=== PATIENT | male | born 1955 | race Hispanic/Latino ===

== ENCOUNTER 2017-10-16 00:36 | Inpatient (IN) | payer SELFPAY ==
[2017-10-16] MEDS ORDERED: Bupivacaine HCl 0.25%/Epi 0.0005/PF 10 ML VIAL FS ONE (01:09)
[2017-10-16] MEDS ORDERED: Ondansetron ODT 4 MG TAB ONE (01:09)
[2017-10-16] MEDS ORDERED: Pantoprazole 40 MG VIAL ONE (01:09)
[2017-10-16 01:30] LABS: PTT 37.3 SEC (22.9-36.1); Prothrombin Time 13.1 SEC (12.0-14.7)
[2017-10-16] MEDS ORDERED: Fentanyl 250 MCG/5 ML VIAL ONE (01:35)
[2017-10-16] MEDS ORDERED: Cefepime 2 GM in Sodium Chloride 0.9% 100 ML IVPB SCH (02:30)
--- NOTE | 2017-10-16 03:31 | HP ---
CHIEF COMPLAINT: Abdominal pain. HISTORY OF PRESENT ILLNESS: Mr. Jerry is a 61-year-old man with a 2-week history of epigastric pain. This became much worse after he had dinner and 2 beers more around 8:00 last night. He called his family at 10 and they took him to his local emergency room, where he was found to have evidence of a bowel perforation. He states that he has been taking Advil for the pain, but has not been taking it frequently or every day. He does have a past history of being told that he might have ulcers, but mccabe s not apparently had any endoscopy or been on any medication for this and he was told as many years a go, he does smoke and occasionally does cocaine, most recently last weekend, he also drinks daily, us ually 1-2 beers but up to a 20-pack on the weekend. PAST MEDICAL HISTORY: None except for possibly a distant history of suspected ulcer disease. PAST SURGICAL HISTORY: None. FAMILY HISTORY: Thyroid cancer in his mother and heart disease in his father diagnosed in his late 7 0s. ALLERGIES: No known drug allergies. OUTPATIENT MEDICATIONS: None chronic. He has been taking Pepto-Bismol and Advil [id number]. REVIEW OF SYSTEMS: Ten system review of systems is negative except per HPI. He has not had any naus ea or vomiting, fevers or chills or any changes in his bowel habits. PHYSICAL EXAMINATION: GENERAL: Patient is afebrile. HEENT: Unremarkable. NECK: Supple without lymphadenopathy or thyroid nodules. VITAL SIGNS: Regular in its rate and rhythm without murmurs, rubs, or gallops. LUNGS: Clear to auscultation bilaterally. ABDOMEN: Firm with some guarding. He does not have any palpable masses or hernias. No incisions. He is diffusely tender to palpation, but worse in the upper abdomen in the right side. EXTREMITIES: Warm and well perfused without edema. NEUROLOGIC: No focal deficits. PSYCHIATRIC: Alert, oriented, and appropriate. LABORATORY DATA AND X-RAY FINDINGS: Labs are unremarkable. CT images from transferring facility are reviewed and I agree with written report. He has free air and free fluid in the upper abdomen and t he right colic gutter as well as some extravasation of oral contrast suggesting a gastric or duodenal perforation. ASSESSMENT: Perforated viscus, most likely perforated ulcer. PLAN: I have recommended laparoscopic repair if unexpected more distal perforation is identified, th en resection or even ostomy may be necessary, but I do not anticipate this to be the case. If the ul cer is too large to repair laparoscopically and open surgery and possibly resection or other procedur e may be necessary. Inherent risks of the surgery include but are not limited to bleeding, infection , risks of anesthesia, damage to nearby structures such as bowel, liver, and blood vessels, need for other operations and failure of the repair. He and his family understand and accept these risks and wish to proceed. All their questions were answered. 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
[2017-10-16] MEDS ORDERED: Midazolam HCl 2 mg/2 ml Vial ONE (03:58)
[2017-10-16] MEDS ORDERED: Promethazine HCl 25 MG/ML VIAL SLOW IVP PRN (04:04)
[2017-10-16] MEDS ORDERED: Ondansetron HCl/PF 4 MG/2 ML Vial IVP PRN (04:04)
[2017-10-16] MEDS ORDERED: Promethazine HCl 25 MG/ML VIAL IM PRN (04:04)
[2017-10-16] MEDS ORDERED: Chloraseptic Spray 180 ml Bottle PO PRN (04:41)
[2017-10-16] MEDS ORDERED: Enoxaparin Sodium 40 MG/0.4 ML SYRINGE SC SCH (05:00)
[2017-10-16] MEDS: Pantoprazole 80 MG in Sodium Chloride 0.9% 100 ML IVP SCH ×3 (05:38→23:30)
[2017-10-16] MEDS: Acetaminophen 1,000 MG in Premix Bag 1 BAG IVPB SCH ×4 (05:38→23:30)
[2017-10-16] MEDS: D5 1/2 NS w/20 mEq KCL 1,000 ML IV SCH ×4 (05:38→23:29)
[2017-10-16 07:59] VITALS: BMI 22.2
[2017-10-16 08:07] LABS: Anion Gap 10 mmol/L (10-20); BUN (Urea Nitrogen) 13 mg/dL (8.4-25.7); Calc. Creatinine Clearance 103 mL/min (70-130); Calcium 7.6 mg/dL (7.8-10.44); Carbon Dioxide 19 mmol/L (22-29); Chloride 110 mmol/L (98-107); Estimated GFR-MDRD Greater than 90; Glucose 115 mg/dL (70-105); Potassium 4.4 mmol/L (3.5-5.1); Sodium 135 mmol/L (136-145)
[2017-10-16 08:34] LABS: Band 42 % (5-11); Lymphocytes 12 % (21-51); MDiff Complete? YES; Mean Corpuscular HGB CONC 32.9 g/dL (32.0-36.0); Mean Corpuscular Hemoglobin 31.7 pg (27.0-31.0); Mean Corpuscular Volume 96.4 fL (78.0-98.0); Mean Platelet Volume 7.6 fL (7.4-10.4); Monocytes 2 % (0-10); Neutrophil 42 % (42-75); PLT Morphology Comment Appears Adequate; Platelet Count 297 thou/uL (130-400); RBC Distribution Width 12.8 % (11.5-14.5); Reactive Lymphocytes 2 % (0-10); Reflex for Review?? YES; Vacuoles SLIGHT
--- NOTE | 2017-10-16 09:49 | RAD ---
FRONTAL VIEW ABDOMEN/KUB: Indication: Evaluate nasogastric tube placement. FINDINGS: There is an enteric catheter partially visualized and terminates at the left upper quadrant. There is nonspecific bowel gas pattern. Catheter tip is seen overlying the right abdomen. IMPRESSION: Partially imaged enteric catheter left upper quadrant. POS: [facility]
[2017-10-16] MEDS ORDERED: PROPOFOL 200 MG/20 ML VIAL ONE (13:07)
[2017-10-16] MEDS ORDERED: Lidocaine 1% PF 5 ML VIAL ONE (13:07)
[2017-10-16] MEDS ORDERED: Ondansetron HCl/PF 4 MG/2 ML Vial ONE (13:07)
[2017-10-16] MEDS ORDERED: PHENYLEPHRINE-NS 100 MCG/ML 10 ML SYRINGE ONE (13:07)
[2017-10-16] MEDS ORDERED: Dexamethasone 20 MG/5 ML VIAL ONE (13:07)
[2017-10-16] MEDS ORDERED: Succinylcholine Chloride 20 MG/ML 10 ml SYRINGE FS ONE (13:07)
[2017-10-16] MEDS ORDERED: Glycopyrrolate 0.2 MG/ML 5 ML SYRINGE ONE (13:07)
[2017-10-16] MEDS: Enoxaparin Sodium 40 MG/0.4 ML SYRINGE SC SCH (20:16)
[2017-10-17] MEDS: Acetaminophen 1,000 MG in Premix Bag 1 BAG IVPB SCH (05:20)
[2017-10-17] MEDS: D5 1/2 NS w/20 mEq KCL 1,000 ML IV SCH ×3 (08:53→23:57)
[2017-10-17 10:01] LABS: #Eosinphils 0.1 thou/uL (0.0-0.7); #Lymphocytes 1.4 thou/uL (1.20-3.40); #Monocytes 0.8 thou/uL (0.11-0.59); #Neutrophils 9.2 thou/uL (1.40-6.50); %Basophils 0.2 % (0.0-1.0); %Eosinophils 0.7 % (0.0-10.0); %Lymphocytes 12.3 % (21.0-51.0); %Neutrophils 79.9 % (42.0-75.0); Hemoglobin 12.1 g/dL (14.0-18.0); Mean Corpuscular HGB CONC 32.7 g/dL (32.0-36.0); Mean Corpuscular Hemoglobin 31.3 pg (27.0-31.0); Mean Corpuscular Volume 95.7 fL (78.0-98.0); Mean Platelet Volume 7.4 fL (7.4-10.4); Platelet Count 286 thou/uL (130-400); Red Blood Cell (RBC) Count 3.87 mill/uL (4.70-6.10); White Blood Cell (WBC) Count 11.6 thou/uL (4.8-10.8)
[2017-10-17 10:21] LABS: Anion Gap 9 mmol/L (10-20); BUN (Urea Nitrogen) 9 mg/dL (8.4-25.7); Calc. Creatinine Clearance 102 mL/min (70-130); Calcium 8.3 mg/dL (7.8-10.44); Carbon Dioxide 24 mmol/L (22-29); Chloride 109 mmol/L (98-107); Estimated GFR-MDRD Greater than 90; Glucose 121 mg/dL (70-105); Sodium 138 mmol/L (136-145)
[2017-10-17] MEDS: Pantoprazole 80 MG in Sodium Chloride 0.9% 100 ML IVP SCH ×2 (11:04→22:04)
--- NOTE | 2017-10-17 18:14 | PDOC.OP ---
Operative Note - Operative Note Operative Note: PROCEDURE: Laparoscopic repair of perforated pyloric channel ulcer and laparoscopic washout of abdomen with drain placement. DATE OF PROCEDURE: 10/16/2017 SURGEON: Charlie Lui M.D. PREOPERATIVE DIAGNOSES: Perforated viscus consistent with perforated ulcer on history and CT. POSTOPERATIVE DIAGNOSIS: Perforated pyloric channel ulcer. HISTORY: Patient with a 2 week history of epigastric pain with sudden worsening of his pain just prior to presentation to his local emergency room. CT showed free air and free fluid in the abdomen with extravasation of oral contrast in the area of the pylorus. Recommendation was made to proceed to the operating room for laparoscopic washout and likely repair of perforated ulcer. PROCEDURE IN DETAIL: After informed consent was obtained and appropriate preoperative antibiotics administered the patient was taken to the operating room where he was placed in the supine position and general endotracheal anesthesia was administered. A Guerra catheter was placed to decompress the bladder and a NG tube was placed to decompress his stomach. He was prepped and draped in a standard sterile fashion and local anesthesia was infused the skin and subcutaneous tissues at the level of the umbilicus. A transverse skin incision was made, the fascia was elevated, and a Veress needle placed into the abdominal cavity without difficulty. Carbon dioxide gas insufflated to an intra- abdominal pressure of 15 which the patient tolerated well. Opening pressure was less than 5. The Veress needle was then withdrawn and a Watrous port advanced under direct vision into the abdominal cavity which was carefully examined. The patient was noted to have cloudy bilious fluid in the right paracolic gutter. Additional dissecting trochars were placed under direct laparoscopic vision in the left lateral and right lower quadrant positions. A large amount of cloudy bilious fluid was suctioned out of the abdomen and the right upper quadrant and sent for Gram stain and culture. Some acute-appearing adhesions between the omentum liver and duodenum were easily taken down and a small well defined pyloric channel ulcer identified. A noninflamed tongue of omentum was selected and brought up to this area and easily covered this area. A Michael patch repair was performed laparoscopically with this tongue of omentum, securing it with 3- 0 Vicryl Lembert sutures across the pyloric channel ulcer with excellent coverage of the ulcer. The abdomen was then irrigated with 9 L of warm saline taking care to irrigate all 4 quadrants and between the loops of intestine and into the pelvis. There was a large amount of cloudy fluid within the abdomen which was irrigated to clear. The area of the Michael patch repair was then examined and there was no evidence of further bilious drainage in this area. A PRANAY drain was placed into the abdomen and drawn out through the right lower quadrant incision. This was secured to the skin and placed into the right paracolic gutter with the end lying beneath the gallbladder just lateral to the Michael patch repair. The left lateral trocar was removed and hemostasis was verified. Carbon dioxide gas was desufflated through the umbilical trocar which was then removed. Additional local anesthesia was infused at the skin incisions. The fascia at the umbilicus was easily visible within the wound was closed under direct vision using a 0 Vicryl suture on a UR 6 needle with excellent technical result. The umbilical and left lateral trocar sites were closed with 4-0 subcuticular Monocryl sutures and Dermabond was placed. A drain sponge and Tegaderm were placed at the PRANAY site and the patient was extubated and taken to the recovery room in good condition. Estimated blood loss was minimal. There were no complications. Specimen is peritoneal fluid for Gram stain and culture.
[2017-10-17] MEDS ORDERED: Meropenem 2 GM in Sodium Chloride 0.9% 100 ML IVPB SCH (18:30)
[2017-10-17] MEDS: Enoxaparin Sodium 40 MG/0.4 ML SYRINGE SC SCH (20:01)
[2017-10-17] MEDS ORDERED: Enoxaparin Sodium 40 MG/0.4 ML SYRINGE SC SCH (21:00)
[2017-10-17] MEDS: metroNIDAZOLE 500 MG in Premix Bag 1 BAG IVPB SCH (23:57)
[2017-10-18] MEDS ORDERED: Meropenem 2 GM in Sodium Chloride 0.9% 100 ML IVPB SCH (04:00)
[2017-10-18 04:57] LABS: #Eosinphils 0.2 thou/uL (0.0-0.7); #Lymphocytes 1.3 thou/uL (1.20-3.40); #Monocytes 0.8 thou/uL (0.11-0.59); #Neutrophils 8.2 thou/uL (1.40-6.50); %Basophils 0.3 % (0.0-1.0); %Eosinophils 1.6 % (0.0-10.0); %Lymphocytes 12.6 % (21.0-51.0); %Monocytes 7.2 % (0.0-10.0); %Neutrophils 78.4 % (42.0-75.0); Hemoglobin 12.5 g/dL (14.0-18.0); Mean Corpuscular HGB CONC 32.2 g/dL (32.0-36.0); Mean Corpuscular Hemoglobin 30.9 pg (27.0-31.0); Mean Corpuscular Volume 95.9 fL (78.0-98.0); Mean Platelet Volume 7.7 fL (7.4-10.4); Platelet Count 305 thou/uL (130-400); RBC Distribution Width 12.7 % (11.5-14.5); Red Blood Cell (RBC) Count 4.05 mill/uL (4.70-6.10); White Blood Cell (WBC) Count 10.4 thou/uL (4.8-10.8)
[2017-10-18 05:15] LABS: Anion Gap 9 mmol/L (10-20); BUN (Urea Nitrogen) 7 mg/dL (8.4-25.7); Calc. Creatinine Clearance 106 mL/min (70-130); Calcium 8.6 mg/dL (7.8-10.44); Carbon Dioxide 26 mmol/L (22-29); Chloride 105 mmol/L (98-107); Estimated GFR-MDRD Greater than 90; Glucose 102 mg/dL (70-105); Potassium 3.7 mmol/L (3.5-5.1); Sodium 136 mmol/L (136-145)
[2017-10-18] MEDS: metroNIDAZOLE 500 MG in Premix Bag 1 BAG IVPB SCH ×3 (06:51→17:10)
[2017-10-18] MEDS: Pantoprazole 80 MG in Sodium Chloride 0.9% 100 ML IVP SCH ×2 (08:23→21:15)
[2017-10-18] MEDS: D5 1/2 NS w/20 mEq KCL 1,000 ML IV SCH ×2 (08:23→14:46)
--- NOTE | 2017-10-18 11:35 | CT ---
ABDOMEN AND PELVIC CT SCAN WITH IV CONTRAST: HISTORY: A 61-year-old male status post operative for perforated pyloric ulcer. COMPARISON: 10/15/17. FINDINGS: There are moderate bilateral subpulmonic pleural effusions, worse on the right side with bibasilar pu lmonary and parenchymal changes, evidence for partial lower lobe atelectasis with some air bronchogra ms. There is evidence for a fairly large amount of intraperitoneal air as well as air extending up i nto the mediastinum consistent with pneumomediastinum. Minimal fluid adjacent to the anterior aspect of the right lobe of the liver. The gallbladder is somewhat heterogeneous in attenuation. A draina ge catheter is noted in the right colonic gutter and extending into the subhepatic space and position somewhat between the gallbladder and the duodenum. No evidence of drainable abscess. No bowel obst ruction. IMPRESSION: A moderate amount of intraperitoneal air as well as extension of the intraperitoneal air into the med iastinum and evidence for pneumomediastinum. Bilateral subpulmonic pleural effusions slightly larger on the right side with bilateral posterior lower lobe parenchymal changes, evidence for partial atel ectasis and/or pneumonia/pneumonitis. Right-sided percutaneous drainage tube in place. A small amou nt of fluid adjacent to the anterior aspect of the right lobe of the liver. No evidence for a draina ble abscess. POS: [facility]
[2017-10-18] MEDS: Meropenem 2 GM, Admixture Fee 1 EACH in Sodium Chloride 0.9% 100 ML IVPB SCH ×2 (12:21→21:12)
[2017-10-18] MEDS ORDERED: Iopamidol 370 76% 50 ML VIAL FS ONE (13:25)
[2017-10-18] MEDS ORDERED: ISOVUE-370 76%-LOCM 1 ML ONE (13:25)
--- NOTE | 2017-10-18 18:04 | PDOC.GSPN ---
Surgery Progress Note: Subj - Subjective Narrative: Feels better. Less pain. No nausea. Afebrile with normal vital signs. White count is down to normal although he still has a left shift. Electrolytes are unremarkable. CT today showed some residual free air which is likely postoperative in nature. No evidence of extravasation of contrast and no intra-abdominal abscesses. PRANAY drainage is down and the fluid is clear than yesterday and has no bilious tinge. Assessment/plan: Doing well status post laparoscopic washout and repair of perforated ulcer. DC NG tube and start clear liquid diet. If he tolerates this, advance diet and possible discharge tomorrow. Surgery Progress Note: Obj - Vital signs Vital signs: Vital Signs - Most Recent Temp Pulse Resp BP Pulse Ox 98.3 F 96 19 115/77 92 L 10/18/17 16:15 10/18/17 16:15 10/18/17 16:15 10/18/17 16:15 10/18/17 16:15 Surgery Progress Note: Results - Labs Result Diagrams: 10/18/17 04:33 10/18/17 04:33
[2017-10-18 19:14] LABS: H. pylori IgA ABS Less than 9.0 units (0.0-8.9); H. pylori IgG ABS 2.41 (0.00-0.79); H. pylori IgM ABS Less than 9.0 units (0.0-8.9)
[2017-10-18] MEDS: Enoxaparin Sodium 40 MG/0.4 ML SYRINGE SC SCH (21:15)
[2017-10-19] MEDS: metroNIDAZOLE 500 MG in Premix Bag 1 BAG IVPB SCH ×2 (00:13→06:53)
[2017-10-19] MEDS: D5 1/2 NS w/20 mEq KCL 1,000 ML IV SCH ×2 (03:47→09:42)
[2017-10-19] MEDS: Meropenem 2 GM, Admixture Fee 1 EACH in Sodium Chloride 0.9% 100 ML IVPB SCH (03:53)
[2017-10-19 04:38] LABS: #Basophils 0.1 thou/uL (0.0-0.2); #Eosinphils 0.3 thou/uL (0.0-0.7); #Lymphocytes 1.8 thou/uL (1.20-3.40); #Monocytes 0.6 thou/uL (0.11-0.59); #Neutrophils 4.9 thou/uL (1.40-6.50); %Basophils 1.3 % (0.0-1.0); %Eosinophils 3.3 % (0.0-10.0); %Lymphocytes 23.9 % (21.0-51.0); %Monocytes 7.2 % (0.0-10.0); %Neutrophils 64.4 % (42.0-75.0); Hemoglobin 13.5 g/dL (14.0-18.0); Mean Corpuscular HGB CONC 33.6 g/dL (32.0-36.0); Mean Corpuscular Volume 95.2 fL (78.0-98.0); Mean Platelet Volume 7.6 fL (7.4-10.4); Platelet Count 314 thou/uL (130-400); RBC Distribution Width 12.5 % (11.5-14.5); Red Blood Cell (RBC) Count 4.23 mill/uL (4.70-6.10); White Blood Cell (WBC) Count 7.6 thou/uL (4.8-10.8)
[2017-10-19 04:51] LABS: Anion Gap 10 mmol/L (10-20); BUN (Urea Nitrogen) 6 mg/dL (8.4-25.7); Calc. Creatinine Clearance 108 mL/min (70-130); Calcium 8.8 mg/dL (7.8-10.44); Carbon Dioxide 25 mmol/L (22-29); Chloride 106 mmol/L (98-107); Estimated GFR-MDRD Greater than 90; Glucose 109 mg/dL (70-105); Potassium 3.7 mmol/L (3.5-5.1); Sodium 137 mmol/L (136-145)
[2017-10-19] MEDS: Pantoprazole 80 MG in Sodium Chloride 0.9% 100 ML IVP SCH (06:16)
[2017-10-19 07:46] VITALS: BP 127/79
[2017-10-19 12:46] VITALS: TEMP 98.7
[2017-10-19] MEDS ORDERED: metroNIDAZOLE 500 MG TAB PO SCH (15:00)
[2017-10-19] MEDS ORDERED: Amoxicillin/Potassium Clav 500 MG TAB PO SCH (21:00)
[2017-10-19] MEDS ORDERED: Clarithromycin 500 MG TAB PO SCH (21:00)
== END 2017-10-19 14:43 | disposition home or self-care (01) | DRG 326 ==
LOC: ERS 00:36 → SDC/OP 02:07 → SURG A 03:51
PROVIDERS: ADMIT Surgery; ATTEND Surgery
PROC: 0DU747Z Supplement Stomach, Pylorus with Autologous Tissue Substitute, Percutaneous Endoscopic Approach (ICD-10-PCS; principal; 2017-10-16)
PROC: 3E1M38Z Irrigation of Peritoneal Cavity using Irrigating Substance, Percutaneous Approach (ICD-10-PCS; 2017-10-16)
PROC: 0D9W40Z Drainage of Peritoneum with Drainage Device, Percutaneous Endoscopic Approach (ICD-10-PCS; 2017-10-16)
DX: K25.5 Chronic or unspecified gastric ulcer with perforation (principal); K65.9 Peritonitis, unspecified; F17.210 Nicotine dependence, cigarettes, uncomplicated; Z87.11 Personal history of peptic ulcer disease; Z80.8 Family history of malignant neoplasm of other organs or systems; Z82.49 Family history of ischemic heart disease and other diseases of the circulatory system
CPT/HCPCS: 36415; 74018; 74177; 80048; 82274; 85025; 85060; 85610; 85730; 87070; 87205; 90471; 90732; 96374; 96375; A4216; C9113; G0009; J0131; J0692; J1100; J1650; J2001; J2185; J2250; J2270; J2405; J2704; J3010; J7050; Q0162

== ENCOUNTER 2018-09-23 12:22 | Inpatient (IN) | payer SELFPAY ==
[2018-09-23 14:12] LABS: HIV (1/2) Antibody/Antigen Non-Reactive (NonReactive); HIV 1/2 INDEX 0.12 S/CO (<1.00)
[2018-09-23] MEDS ORDERED: Ondansetron ODT 4 MG TAB PO PRN (18:02)
[2018-09-23] MEDS ORDERED: Ondansetron PF 4 MG/2 ML Vial IVP PRN (18:02)
[2018-09-23] MEDS ORDERED: Acetaminophen 325 MG TAB PO PRN (18:02)
[2018-09-23] MEDS: Famotidine 20 MG TAB PO SCH (20:28)
--- NOTE | 2018-09-23 23:26 | HP ---
The patient is a [employer]. CHIEF COMPLAINT: Chest pain and shortness of breath. HISTORY OF PRESENT ILLNESS: Mr. Jerry is a very pleasant 62-year-old gentleman who has no history of any prior past medical history. He says that about a week ago, he started having pain in his chest. He said it happened 2 or 3 times out of the week. He says that the pain was a sharp pain and was worse when he took in a deep breath. He also noted some fever as well as chills. He also noted some fever blisters on his lips as well. He says that he also was waking up with some chills and has had a poor appetite. He has lost about 6 pounds in the last month. He is also feeling fatigued and occasionally he will have his nose will run and he will have some blood in the mucus. 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 As a result of his symptoms, he came to the emergency room for evaluation. In the ER, a chest x-ray was done, which showed he had bilateral interstitial infiltrates and he also had an elevated white count at 17.5, and he is being admitted for further evaluation. REVIEW OF SYSTEMS: CONSTITUTIONAL: He has had subjective fever as well as chills and occasional night sweats and he has had a 6-pound weight loss in the last month. HEENT: He denies any headaches. No dizziness. No visual changes. No sore throat. He has had some rhinorrhea with some blood in the mucus. No known adenopathy that he has noticed. PULMONARY: He has had cough which has been more or less nonproductive and pain in his chest as well with inspiration. No wheezing. CARDIOVASCULAR: Again, pain in the chest, but primarily on the right side when he takes in a deep breath. There has been no palpitations. No PND. No orthopnea. No lower extremity edema. GASTROINTESTINAL: He denies any abdominal pain. No nausea. No vomiting. No change in bowels. GENITOURINARY: No urinary frequency, hematuria, or hesitancy. NEUROLOGIC: No focal weakness or numbness. No seizures. PSYCHIATRIC: No symptoms of anxiety or depression. SKIN AND INTEGUMENT: No skin changes. No rash. PAST MEDICAL HISTORY: Negative. PAST SURGICAL HISTORY: He has had a laparoscopic surgery for perforated ulcer. ALLERGIES: NO KNOWN DRUG ALLERGIES. SOCIAL HISTORY: He smokes about half a pack to a pack of cigarettes daily for 40 years. He quit about 2 weeks ago. He drinks about 3 to 4 beers a day. He occasionally will use cocaine and he used some powder cocaine about a month ago. Again, he works as a arc welder apprentice. He is a full code and his daughter is the surrogate decision maker. FAMILY HISTORY: Significant for mother who had either cancer or sarcoidosis. CURRENT MEDICATIONS: None. PHYSICAL EXAMINATION: GENERAL: He is alert and oriented. He appears to be in no acute distress. He is a bit thin, almost cachectic. VITAL SIGNS: Blood pressure was 106/70, heart rate 75, respiratory rate of 20, and temperature was 99.0. HEENT: Pupils are equal, round, and reactive to light. Extraocular muscles are intact. Sclerae are anicteric. Throat, there is no erythema, no exudates. NECK: No adenopathy. No bruits. LUNGS: Clear to auscultation. I did not appreciate any wheezing. No rales. No rhonchi. CARDIOVASCULAR: He had a normal S1 and S2. There is no S3 or S4. No murmurs, clicks, or rubs. ABDOMEN: Soft, nontender, and nondistended. Positive for bowel sounds. There is no rebound, no guarding, no organomegaly. EXTREMITIES: There is no calf tenderness. No joint effusions. NEUROLOGIC: His cranial nerves II through XII are grossly intact. Nonfocal. SKIN AND INTEGUMENT: There is a small rash on the left lower extremity, is erythematous, is nonblanching, is nonraised and nontender. Otherwise, no other skin lesions. LABORATORY DATA: White blood cell count 17.5, hemoglobin 13.1, hematocrit is 40.6, and platelet count was 415. D-dimer was 2.86. Sodium 137, potassium 3.8, chloride is 99, CO2 is 27, BUN of 9, creatinine 0.84, glucose is 109. He had a chest x-ray, which has bilateral pulmonary infiltrates in an interstitial type distribution. There are questionable nodules in the right middle and upper lobe and this is by my reading. The patient also had a CT angiogram of the chest. There is evidence of patchy consolidation bilaterally, but no evidence of pulmonary edema. ASSESSMENT: This is a pleasant 62-year-old gentleman who presents to the emergency room with chest pain as well as shortness of breath. He was found to have radiographic evidence of pulmonary infiltrates bilaterally as well as an elevated white blood cell count. The appearance of the chest x-ray is a bit atypical, and as such, I suspect that he is at a bit higher risk for tuberculosis given that he is also foreign born. For this reason, we will go ahead and place him in isolation for now. We will consult Pulmonology to help with regard to the evaluation and management in his particular case. We will get a QuantiFERON gold to help rule out TB as well as AFB smear x3. However, we will be treating him for community-acquired pneumonia until tuberculosis is ruled in. He will be also placed on deep venous thrombosis and gastrointestinal prophylaxis and further recommendations to follow. Job ID: [id number]
[2018-09-24] MEDS ORDERED: Temazepam 15 MG CAP PO SCH (00:15)
[2018-09-24 03:50] LABS: Strep pneumo Urine Ag NEGATIVE (NEGATIVE)
[2018-09-24 03:51] LABS: Legionella Urinary Ag Negative (Negative)
[2018-09-24 05:06] LABS: #Eosinphils 0.3 thou/uL (0.0-0.7); #Neutrophils 8.2 thou/uL (1.40-6.50); %Basophils 0.3 % (0.0-1.0); %Eosinophils 2.9 % (0.0-10.0); %Lymphocytes 17.4 % (21.0-51.0); %Monocytes 8.9 % (0.0-10.0); %Neutrophils 70.6 % (42.0-75.0); Hemoglobin 12.5 g/dL (14.0-18.0); Mean Corpuscular HGB CONC 32.2 g/dL (32.0-36.0); Mean Corpuscular Hemoglobin 30.5 pg (27.0-31.0); Mean Corpuscular Volume 94.7 fL (78.0-98.0); Platelet Count 439 thou/uL (130-400); RBC Distribution Width 12.6 % (11.5-14.5); Red Blood Cell (RBC) Count 4.09 mill/uL (4.70-6.10); White Blood Cell (WBC) Count 11.5 thou/uL (4.8-10.8)
[2018-09-24 05:21] LABS: Anion Gap 12 mmol/L (10-20); BUN (Urea Nitrogen) 10 mg/dL (8.4-25.7); Calc. Creatinine Clearance 96 mL/min (70-130); Calcium 8.9 mg/dL (7.8-10.44); Carbon Dioxide 25 mmol/L (22-29); Chloride 103 mmol/L (98-107); Estimated GFR-MDRD Greater than 90; Glucose 127 mg/dL (70-105); Potassium 3.7 mmol/L (3.5-5.1); Sodium 136 mmol/L (136-145)
[2018-09-24] MEDS ORDERED: Diabetic Tussin 200 MG/10 ML UDCUP PO PRN (07:15)
[2018-09-24] MEDS ORDERED: Temazepam 15 MG CAP PO PRN (07:15)
[2018-09-24] MEDS ORDERED: Artificial Tears 18 DROP/0.9 ML EA EYE PRN (07:15)
[2018-09-24] MEDS ORDERED: Senokot S 8.6-50 MG TAB PO PRN (07:15)
[2018-09-24] MEDS ORDERED: Cepastat Lozenges 1 LOZ PO PRN (07:15)
[2018-09-24] MEDS ORDERED: Loratadine 10 MG TAB PO PRN (07:15)
[2018-09-24] MEDS ORDERED: Sodium Chloride 0.65% Nasal 44 ML BOT EA NARE PRN (07:15)
[2018-09-24] MEDS ORDERED: Loperamide HCl 2 MG CAP PO PRN (07:15)
[2018-09-24] MEDS ORDERED: Bisacodyl 10 MG SUPP PR PRN (07:15)
[2018-09-24] MEDS ORDERED: hydrALAZINE 20 MG/ML VIAL SLOW IVP PRN (07:15)
[2018-09-24] MEDS: Enoxaparin Sodium 40 MG/0.4 ML SYRINGE SC SCH (09:02)
[2018-09-24] MEDS: Famotidine 20 MG TAB PO SCH ×2 (09:02→22:15)
[2018-09-24] MEDS ORDERED: predniSONE 20 MG TAB PO SCH (10:15)
--- NOTE | 2018-09-24 10:32 | PDOC.PN ---
- Subjective Encounter Start Date: 09/24/18 Encounter Start Time: 09:15 -: old records requested/rev Patient seen and examined. No new complaints. No overnight events - Objective Resuscitation Status - Order Detail: 09/23/18 17:57 Resuscitation Status Routine Resuscitation Status: FULL: Full Resuscitation MAR Reviewed: Yes Vital Signs & Weight: Vital Signs (12 hours) Temp Pulse Resp BP Pulse Ox 09/24/18 08:00 93 L 09/24/18 07:16 98.5 F 75 18 108/75 93 L 09/24/18 04:01 98.8 F 76 14 101/67 93 L 09/24/18 03:00 98.8 F 94 L 09/24/18 00:02 99.3 F 76 16 122/75 91 L Weight Weight 139 lb 5.314 oz Result Diagrams: 09/24/18 04:55 09/24/18 04:55 Radiology Reviewed by me: Yes Phys Exam - Physical Examination Constitutional: NAD HEENT: PERRLA, moist MMs, sclera anicteric Neck: no JVD, supple Respiratory: no wheezing, no rhonchi Cardiovascular: RRR, no significant murmur, no rub Gastrointestinal: soft, non-tender, no distention, positive bowel sounds Musculoskeletal: no edema, pulses present Neurological: non-focal, normal sensation, moves all 4 limbs Lymphatic: no nodes Psychiatric: normal affect, A&O x 3 Skin: no rash, normal turgor Dx/Plan (1) Community acquired bacterial pneumonia Code(s): J15.9 - UNSPECIFIED BACTERIAL PNEUMONIA Status: Acute (2) Ex-smoker Status: Chronic - Plan cont current plan of care, continue antibiotics * continue IV levaquin. * medication reviewed as below * symptomatic treatment * follow culture * less likely Tb as per pt's history and I spoke with pulmonary Review of Systems - Review of Systems ENT: negative: Ear Pain, Ear Discharge, Nose Pain, Nose Discharge, Nose Congestion, Mouth Pain, Mouth Swelling, Throat Pain, Throat Swelling, Other Respiratory: Cough. negative: Dry, Shortness of Breath, Hemoptysis, SOB with Excertion, Pleuritic Pain, Sputum, Wheezing Cardiovascular: negative: chest pain, palpitations, orthopnea, paroxysmal nocturnal dyspnea, edema, light headedness, other Gastrointestinal: negative: Nausea, Vomiting, Abdominal Pain, Diarrhea, Constipation, Melena, Hematochezia, Other Genitourinary: negative: Dysuria, Frequency, Incontinence, Hematuria, Retention , Other Musculoskeletal: negative: Neck Pain, Shoulder Pain, Arm Pain, Back Pain, Hand Pain, Leg Pain, Foot Pain, Other Skin: negative: Rash, Lesions, Toño, Bruising, Other - Medications/Allergies Allergies/Adverse Reactions: Allergies Allergy/AdvReac Type Severity Reaction Status Date / Time No Known Allergies Allergy Verified 09/23/18 15:53 Medications: Current Medications Acetaminophen (Tylenol) 650 mg PO Q4H PRN PRN Reason: Headache/Fever/Mild Pain (1-3) Artificial Tears (Tears Naturale) 2 drop EA EYE PRN PRN PRN Reason: Dry Eyes Bisacodyl (Dulcolax) 10 mg RI DAILYPRN PRN PRN Reason: Constipation Enoxaparin Sodium (Lovenox) 40 mg SC 0900 [facility] Last Admin: 09/24/18 09:02 Dose: 40 mg Famotidine (Pepcid) 20 mg PO BID [facility] Last Admin: 09/24/18 09:02 Dose: 20 mg Guaifenesin (Robitussin Sf) 200 mg PO Q4H PRN PRN Reason: Cough Hydralazine HCl (Apresoline) 10 mg SLOW IVP Q4H PRN PRN Reason: SBP > 180 and HR < 70 Levofloxacin 750 mg/ Device 150 mls @ 100 mls/hr IVPB Q24HR [facility] Last Admin: 09/23/18 18:53 Dose: 150 mls Loperamide HCl (Imodium) 2 mg PO PRN PRN PRN Reason: Diarrhea/Loose Stools Loratadine (Claritin) 10 mg PO DAILYPRN PRN PRN Reason: Sinus Symptoms Ondansetron HCl (Zofran Odt) 4 mg PO Q6H PRN PRN Reason: Nausea/Vomiting Ondansetron HCl (Zofran) 4 mg IVP Q6H PRN PRN Reason: Nausea/Vomiting Prednisone (Prednisone) 20 mg PO QAM-[facility] Stop: 09/28/18 08:01 Prednisone (Prednisone) 20 mg PO NOW [facility] Stop: 09/24/18 12:00 Last Admin: 09/24/18 10:29 Dose: 20 mg Senna/Docusate Sodium (Senokot S) 2 tab PO BID PRN PRN Reason: Constipation Sodium Chloride ([place] Nasal [place] 0.65%) 0 ml EA NARE QIDPRN PRN PRN Reason: Nasal Congestion Temazepam (Restoril) 15 mg PO HSPRN PRN PRN Reason: Insomnia Throat Lozenges (Cepastat Lozenges) 1 franny PO Q2H PRN PRN Reason: Sore Throat
--- NOTE | 2018-09-24 11:13 | CON ---
DATE OF CONSULTATION: 09/24/2018 SERVICE: Pulmonary Medicine. REASON FOR CONSULTATION: Pneumonia. HISTORY OF PRESENT ILLNESS: The patient is a 62-year-old male with past medical history significant for extensive tobacco abuse. He quit smoking roughly a week ago. This occurred because he started having onset of pleuritic-type chest discomfort. He had a sharp pain with inspiration. He was also having some fevers and sweats over this period of time. He has not had a profound weight loss over the past several months. He denies ever having any hemoptysis. Three days prior to admission, he started bringing up heavy saunders material with his sputum. He denies any nausea or vomiting. Overnight, he was placed on some antibiotics, nebulized medications. He has made a significant improvement in symptoms; although, he continues to have persistent pleuritic chest discomfort. He is frequently traveling back between [place] and [facility]. He does not have any known exposures to tuberculosis that he is aware of. PAST MEDICAL HISTORY: 1. Peptic ulcer disease. 2. Polysubstance drug abuse. PAST SURGICAL HISTORY: Laparoscopic surgery for ulcer. ALLERGIES: NO KNOWN DRUG ALLERGIES. MEDICATIONS: List of his inpatient medications was reviewed. I have added some prednisone for 5-day course. SOCIAL HISTORY: Up until a week ago, he smoked 2 packs on a daily basis. He has a greater than 50 pack-year history of smoking. He drinks 3 to 4 beers on a daily basis. He has used some cocaine. He currently using any IV drugs. He has no exposures to chemicals, dust, or asbestos. He is not aware of any tuberculosis exposures. FAMILY HISTORY: Noncontributory. REVEIW OF SYSTEMS: General, Head, Ears, Eyes, Nose, Throat, Cardiovascular, Respiratory, GI, , Musculoskeletal, Neurologic, and Skin are negative except as mentioned in the HPI. PHYSICAL EXAMINATION: VITAL SIGNS: Afebrile, pulse 75, blood pressure 108/75, respirations 18, and saturation 93% on room air. GENERAL: The patient is awake and alert, in no apparent distress. LUNGS: Excellent air entry. There is no prolonged expiratory phase. There is no wheezing or crackles. Rhonchi are present. HEART: Normal rate. Regular. ABDOMEN: Soft, nontender, and nondistended. Bowel sounds are positive. MUSCULOSKELETAL: No cyanosis or clubbing. There is no pitting in the bilateral lower extremities. NEUROLOGIC: Grossly nonfocal. LABORATORY: WBC 11, CBS and BMP are otherwise unremarkable. IMAGING STUDIES: CT of the chest was reviewed. He has a multifocal infiltrate limited to the right upper lobe. There are no tree-in-bud opacifications. There are some interstitial and linear changes possibly consistent with old scar tissue and/or atelectasis in the bibasilar regions of the lung. There is no pulmonary embolism present. ASSESSMENT: 1. Acute hypoxic respiratory failure, resolved. 2. Community-acquired pneumonia. 3. Polysubstance drug abuse. 4. Tobacco abuse, recently quit x2 weeks. 5. Chronic obstructive pulmonary disease, probable. DISCUSSION AND PLAN: I agree with our current antibiotic selection. Had a 5- day course of low dose of prednisone. This may help with any COPD inflammatory changes. It should also help with his pleuritic chest discomfort. I will get a chest x- ray tomorrow morning. If there is no significant effusion, he could be considered for transition home. He will need to complete a 7-day course of antibiotic, and a 5 -day course of medium dose prednisone. I am doubtful that the patient has tuberculosis given the characteristics on the CT scan, and the short clinical duration of his symptoms prior to presentation. 70 minutes have been devoted to this patient in various activities. I personally reviewed all imaging studies and laboratory data noted within this document. For fifty percent of this time, I was interacting with the patient at the bedside or coordinating care with the care team. For the remainder of the time I was immediately available to the patient in the hospital unit. Job ID: [id number] [id number]
[2018-09-25 03:44] VITALS: BMI 18.9
[2018-09-25 06:33] LABS: #Basophils 0.1 thou/uL (0.0-0.2); #Eosinphils 0.2 thou/uL (0.0-0.7); #Lymphocytes 2.6 thou/uL (1.20-3.40); #Monocytes 0.5 thou/uL (0.11-0.59); #Neutrophils 10.2 thou/uL (1.40-6.50); %Basophils 0.4 % (0.0-1.0); %Eosinophils 1.8 % (0.0-10.0); %Lymphocytes 19.3 % (21.0-51.0); %Monocytes 3.5 % (0.0-10.0); Hemoglobin 12.6 g/dL (14.0-18.0); Mean Corpuscular HGB CONC 33.1 g/dL (32.0-36.0); Mean Corpuscular Volume 93.8 fL (78.0-98.0); Platelet Count 537 thou/uL (130-400); RBC Distribution Width 12.4 % (11.5-14.5); Red Blood Cell (RBC) Count 4.07 mill/uL (4.70-6.10); White Blood Cell (WBC) Count 13.5 thou/uL (4.8-10.8)
[2018-09-25 06:54] LABS: Anion Gap 11 mmol/L (10-20); BUN (Urea Nitrogen) 11 mg/dL (8.4-25.7); Calc. Creatinine Clearance 101 mL/min (70-130); Calcium 8.9 mg/dL (7.8-10.44); Carbon Dioxide 26 mmol/L (22-29); Chloride 105 mmol/L (98-107); Estimated GFR-MDRD Greater than 90; Glucose 92 mg/dL (70-105); Potassium 3.9 mmol/L (3.5-5.1); Sodium 138 mmol/L (136-145)
[2018-09-25] MEDS ORDERED: predniSONE 20 MG TAB PO SCH (08:00)
--- NOTE | 2018-09-25 08:39 | RAD ---
RADIOGRAPH CHEST 2 VIEWS: Date: 09/25/2017. Time: 7:58 a.m. HISTORY: A 62-year-old male for followup pneumonia. COMPARISON: 09/23/2018. FINDINGS: The previously demonstrated alveolar infiltrates/consolidations, in the posterior segment of right up per lobe, anterior segment of right upper lobe abutting the major fissure, and a small density at the lateral base of right lower lobe, have all become smaller and more faint. There is no pleural effus ion or pneumothorax. Cardiomediastinal silhouette remains normal. Left lung remains clear. No pneu mothorax. IMPRESSION: Interval improvement in multifocal right-sided pneumonia. JN [] POS: TPC
[2018-09-25] MEDS: Enoxaparin Sodium 40 MG/0.4 ML SYRINGE SC SCH (10:04)
[2018-09-25] MEDS: Famotidine 20 MG TAB PO SCH (10:05)
--- NOTE | 2018-09-25 10:29 | PRG ---
DATE OF SERVICE: 09/25/2018 SERVICE: Pulmonary Medicine. INTERVAL HISTORY: The patient is doing really well from Respiratory standpoint. He is breathing comfortably. He still has a little bit of pleuritic chest discomfort, but has vastly improved compared to where we were yesterday. We had a chest x-ray this morning. Ultimately, he feels like he is near baseline. PHYSICAL EXAMINATION: VITAL SIGNS: Afebrile, pulse 68, blood pressure 118/75, respirations 16, saturation 95% on room air. GENERAL: The patient is awake and alert, in no apparent distress. LUNGS: Very good air entry. There are no rubs present in the right lung. No wheezing or crackles are present. HEART: Normal rate and regular. ABDOMEN: Soft, nontender, nondistended. Bowel sounds are positive. MUSCULOSKELETAL: No cyanosis or clubbing. No pitting in the bilateral lower extremities. NEUROLOGIC: Grossly nonfocal. LABORATORY DATA: WBC 13.5, hemoglobin 12.6, platelets 537,000. Basic metabolic profile is otherwise unremarkable. Urine strep and Legionella antigens are negative. IMAGING STUDIES: Chest x-ray demonstrates dramatic improvement in the right upper lobe pneumonia. There is no pneumothorax or pleural effusion present. ASSESSMENT: 1. Acute hypoxic respiratory failure, resolved. 2. Community-acquired pneumonia, improving. 3. Pleuritic chest discomfort, improved. 4. Tobacco abuse, recently quit. 5. Polysubstance drug abuse. 6. Chronic obstructive pulmonary disease, probable. DISCUSSION AND PLAN: The patient is stable for transition out of the hospital. He will need a 5-day course of low-dose steroids and a 7-day course of p.o. Levaquin. He will need a followup chest x-ray in roughly 3 to 4 weeks in the outpatient setting to verify the infiltrate resolves completely. Actually at this point, he has no further requirements for inpatient or outpatient Pulmonary Critical Care opinion, and I will sign off. Please call with additional questions or concerns through time. Job ID: [id number]
--- NOTE | 2018-09-25 11:26 | DIS ---
DATE OF ADMISSION: 09/23/2018 DATE OF DISCHARGE: 09/25/2018 PRIMARY CARE PHYSICIAN: [facility] Call admission. DISCHARGE DISPOSITION: Home. PRIMARY DISCHARGE DIAGNOSIS: Community-acquired pneumonia. SECONDARY DISCHARGE DIAGNOSIS: Ex-smoker. PRIMARY PROCEDURE/OPERATION: None. RADIOLOGICAL INVESTIGATION: Chest x-ray showed multifocal right-sided pneumonia. SIGNIFICANT LABORATORY DATA: WBC 13.5, hemoglobin 12.6, platelet 537. Sodium 138, potassium 3.9, BUN 11, creatinine 0.70, calcium 8.9. Urine Legionella and streptococcal pneumoniae antigen negative. HIV negative. DISCHARGE MEDICATIONS: 1. Tylenol and ibuprofen p.r.n. basis. 2. Mucinex 600 mg p.o. b.i.d. 3. Levaquin 750 mg p.o. daily for 7 more days. 4. Prednisone 20 mg p.o. daily for 7 days. CONTRAINDICATION: None. CODE STATUS: Full code. INPATIENT COMPOSITION ROOFER: Dr. Claros was consulted while in hospital. TEST RESULT PENDING ON DISCHARGE: None. ALLERGIES: NO KNOWN DRUG ALLERGIES. DISCHARGE PLAN: Posthospital, the patient will follow up with primary care physician, and the patient will make appointment with Dr. Claros as instructed. The patient will need repeat imaging with chest x-ray to see resolution of pneumonia. HOSPITAL COURSE: A 62-year-old male with above-mentioned medical problem, who was admitted by Dr. Franco. Please see her H and P for further details. The patient was admitted for increasing shortness of breath, cough, and pleurisy. This was started acutely and it was consistent with community-acquired bacterial pneumonia based on chest x-ray. The patient was treated with broad-spectrum antibiotic therapy with levofloxacin. Pulmonary group was consulted and they recommended to add prednisone for pleurisy. Initially, admitting physician had concern for TB, but the harbormaster was not thinking that the patient has any evidence of tuberculosis based on history, which I agree. The patient had repeat chest x-ray today, which showed improvement in right-sided pneumonia. While in hospital, the patient is afebrile, tolerating p.o. well. I have seen and examined the patient at bedside today. PHYSICAL EXAMINATION: VITAL SIGNS: Currently, temperature 97.5, pulse 68, respiratory rate 16, saturation 95%, blood pressure 118/75, weight 139 pounds. GENERAL: The patient is currently alert and awake, in no obvious acute distress. HEENT: Head, normocephalic and atraumatic. LUNGS: Clear to auscultation without any rhonchi or rales. CARDIAC: S1 and S2. Regular without any murmur. ABDOMEN: Soft and benign. EXTREMITIES: No edema. NEUROLOGIC: Nonfocal examination. The patient is stable for discharge today. Job ID: [id number]
[2018-09-25 12:32] VITALS: BP 136/82; TEMP 98.3
== END 2018-09-25 14:13 | disposition home or self-care (01) | DRG 193 ==
LOC: ERS 12:22 → ERHOLD 12:58 → T4-A 17:37
PROVIDERS: ADMIT Internal Medicine; ATTEND Internal Medicine
DX: J18.9 Pneumonia, unspecified organism (principal); J96.01 Acute respiratory failure with hypoxia; J44.0 Chronic obstructive pulmonary disease with (acute) lower respiratory infection; K27.9 Peptic ulcer, site unspecified, unspecified as acute or chronic, without hemorrhage or perforation; F19.10 Other psychoactive substance abuse, uncomplicated; Z87.891 Personal history of nicotine dependence
CPT/HCPCS: 36415; 71046; 80048; 85025; 86480; 87389; 87899; 94760; J1650; J1956; J3370; J7512